=== PATIENT | male | born 1965 | race Caucasian/White ===

== ENCOUNTER 2021-05-15 09:12 | Emergency (ER) | payer BC ==
[~2021-05-15] VITALS: Ht 182.9 cm; Wt 93.0 kg
[2021-05-15 09:18] VITALS: BP 176/84
[2021-05-15] MEDS ORDERED: CEFTRIAXONE SODIUM 250 MG/VIAL IM ONE (10:15)
[2021-05-15] MEDS ORDERED: AZITHROMYCIN 500 MG TABLET PO ONE (10:15)
[2021-05-15] MEDS ORDERED: IBUP-2030 MT (10:59)
[2021-05-15] MEDS ORDERED: ACYC200C31 PO (10:59)
[2021-05-19 04:12] LABS: NEISSERIA GONORRHOEAE NAA Negative (Negative)
== END 2021-05-15 11:32 | disposition home or self-care (01) ==
LOC: ER 09:12
DX: B00.9 Herpesviral infection, unspecified (principal); I10 Essential (primary) hypertension; E11.9 Type 2 diabetes mellitus without complications; Z86.73 Personal history of transient ischemic attack (TIA), and cerebral infarction without residual deficits
CPT/HCPCS: 87491; 87591; 96372; 99283; J0696